=== PATIENT | female | born 1995 | race Caucasian/White ===

== ENCOUNTER 2017-10-09 06:59 | Emergency (ER) | payer OTHER ==
[2017-10-09 07:11] VITALS: BP 132/71; PULSE 82; RESP 18; TEMP 97.2
--- NOTE | 2017-10-09 07:21 | ED ---
General Adult HPI - General Chief complaint: Recheck/Abnormal Lab/Rx Stated complaint: Needle stick-[facility] Time Seen by Provider: 10/09/17 07:17 Source: patient, RN notes reviewed Mode of arrival: ambulatory Limitations: no limitations - History of Present Illness Initial comments: Patient 22-year-old female presenting to the emergency room today with a chief complaint of a needlestick that occurred at work approximately an hour and a half ago. Patient states that she was given the patient heparin. States she went to retract the needle accidentally poked herself on the left hand. She states it did bleed she cleaned and irrigated the area. Patient states her hepatitis B is up-to-date. Patient denies any other complaints or symptoms. Patient denies any recent fever, chills, shortness of breath, chest pain, abdominal pain, nausea or vomiting, or any other complaints. - Related Data Allergies Allergy/AdvReac Type Severity Reaction Status Date / Time codeine Allergy Unknown Verified 10/09/17 07:11 Penicillins Allergy Unknown Verified 10/09/17 07:11 Review of Systems ROS Statement: Those systems with pertinent positive or pertinent negative responses have been documented in the HPI. ROS Other: All systems not noted in ROS Statement are negative. Past Medical History Past Medical History: No Reported History History of Any Multi-Drug Resistant Organisms: None Reported Past Surgical History: No Surgical Hx Reported Past Psychological History: No Psychological Hx Reported Smoking Status: Never smoker Past Alcohol Use History: None Reported Past Drug Use History: None Reported General Exam - General Exam Comments Initial Comments: General: The patient is awake and alert, in no distress, and does not appear acutely ill. Neck: The neck is supple, there is no tenderness or JVD. Cardiovascular: There is a regular rate and rhythm. No murmur, rub or gallop is appreciated. Respiratory: Lungs are clear to auscultation, respirations are non-labored, breath sounds are equal. No wheezes, stridor, rales, or rhonchi. Musculoskeletal: Full range of motion. Sensation intact. Strength 5/5 Neurological: A&O x 3. CN II-XII intact, There are no obvious motor or sensory deficits. Coordination appears grossly intact. Speech is normal. Skin: Skin is warm and dry and no rashes or lesions are noted. Psychiatric: Normal mood and affect. Limitations: no limitations Course Vital Signs 10/09/17 07:08 Temperature 97.2 F L Pulse Rate 82 Respiratory 18 Rate Blood Pressure 132/71 O2 Sat by Pulse 100 Oximetry Medical Decision Making - Medical Decision Making Rapid HIV testing was performed on source blood which was negative. Results were discussed with the patient. Patient at this time will be discharged home to follow-up with employee health. Her blood has been drawn here in the emergency room and is currently pending. Disposition Clinical Impression: Needle stick injury Disposition: HOME SELF-CARE Condition: Good Instructions: Needle Stick Injuries (ED) Additional Instructions: Please follow-up with employee health as discussed. Please return to emergency room if the symptoms increase or worsen or for any other concerns. Referrals: Luke Echevarria DO [Primary Care Provider] - 1-2 days Time of Disposition: 08:35
[2017-10-09 16:49] LABS: Hepatitis B Surface AB- Quant 48.2 mIU/mL; Hepatitis C IgG Antibody Non-Reactive (Non-Reactive)
[2017-10-09 17:37] LABS: HIV AB P24 Non-Reactive (Non-Reactive); HIV P24 AG Non-Reactive (Non-Reactive)
== END 2017-10-09 08:25 | disposition home or self-care (01) ==
LOC: EC 06:59
DX: S69.92XA Unspecified injury of left wrist, hand and finger(s), initial encounter (principal); Z88.0 Allergy status to penicillin; Z88.5 Allergy status to narcotic agent; W46.0XXA Contact with hypodermic needle, initial encounter; Y99.0 Civilian activity done for income or pay
CPT/HCPCS: 36415; 86706; 86803; 87390; 99283

== ENCOUNTER → 2020-01-19 | Outpatient (CLI) | payer OTHER ==
--- NOTE | 2020-01-19 14:22 | XR ---
EXAMINATION TYPE: XR knee limited RT DATE OF EXAM: 01/19/2020 CLINICAL HISTORY: pain TECHNIQUE: Two views of the right knee are obtained. COMPARISON: None. FINDINGS: There is no acute fracture/dislocation. The tri-compartment joint spaces appear within no rmal limits. The overlying soft tissue appears unremarkable. IMPRESSION: There is no acute fracture or dislocation.ICD 10 NO FRACTURE, INITIAL EVALUATION
== END | disposition home or self-care (01) ==
LOC: RADXRMAIN 12:43
PROVIDERS: ATTEND Family Medicine
DX: R52 Pain, unspecified (principal)

== ENCOUNTER → 2021-08-23 | Outpatient (CLI) | payer BC, OTHER ==
--- NOTE | 2021-08-23 21:42 | CT ---
EXAMINATION TYPE: CT angio chest DATE OF EXAM: 08/23/2021 COMPARISON: NONE HISTORY: chest pain and SOB post covid rule out pulmonary embolism. CT DLP: 155.4 mGycm. Automated Exposure Control for Dose Reduction was Utilized. CONTRAST: CTA scan of the thorax is performed with IV Contrast, patient injected with 44cc mL of Isovue 370, pu lmonary embolism protocol. MIP Images are created on CT scanner and reviewed. FINDINGS: LUNGS: Mild biapical pleural/parenchymal scarring. There is no pleural effusion or pneumothorax see n. The tracheobronchial tree is patent. MEDIASTINUM: There is poor bolus with most dense contrast in the SVC. No central pulmonary embolism. Cannot entirely exclude segmental and subsegmental pulmonary emboli on this exam. Some opacification of the aorta without aneurysm or dissection. There are no greater than 1 cm hilar or mediastinal lym ph nodes. No cardiomegaly or pericardial effusion is seen. OTHER: No additional significant abnormality is seen. IMPRESSION: Suboptimal study without central pulmonary embolism. Cannot entirely exclude peripheral s egmental and subsegmental PE. No significant acute or chronic pulmonary parenchymal process.
== END | disposition home or self-care (01) ==
LOC: RADCTMAIN 16:10
PROVIDERS: ATTEND Family Medicine
DX: I26.99 Other pulmonary embolism without acute cor pulmonale (principal)
CPT/HCPCS: 71275; Q9967

== ENCOUNTER 2021-10-29 01:45 | Emergency (ER) | payer BC, OTHER ==
[2021-10-29 01:50] VITALS: TEMP 98
[2021-10-29 03:11] LABS: Basophils % (A) 1 %; Eosinophils # (A) 0.1 k/uL (0-0.7); Eosinophils % (A) 1 %; HCT 42.8 % (34.0-46.0); HGB 14.7 gm/dL (11.4-16.0); Lymphocytes # (A) 1.8 k/uL (1.0-4.8); Lymphocytes % (A) 22 %; MCH 31.7 pg (25.0-35.0); MCHC 34.4 g/dL (31.0-37.0); MCV 92.2 fL (80.0-100.0); Monocytes # (A) 0.5 k/uL (0-1.0); Monocytes % (A) 5 %; Neutrophils # (A) 5.8 k/uL (1.3-7.7); Neutrophils % (A) 69 %; Platelet Count 350 k/uL (150-450); RBC 4.64 m/uL (3.80-5.40); RDW 13.1 % (11.5-15.5); WBC 8.4 k/uL (3.8-10.6)
[2021-10-29 03:27] LABS: ALT 26 U/L (4-34); AST 23 U/L (14-36); African American GFR (CKD) >90 (>60 ml/min/1.73 sqM); Albumin 4.5 g/dL (3.5-5.0); Alkaline Phosphatase 105 U/L (38-126); Amylase 66 U/L (30-110); Anion Gap 7 mmol/L; Appearance,Urine Clear (Clear); Bilirubin,Urine Negative (Negative); Blood Urea Nitrogen 15 mg/dL (7-17); Blood,Urine Negative (Negative); Calcium 9.4 mg/dL (8.4-10.2); Carbon Dioxide 26 mmol/L (22-30); Chloride 107 mmol/L (98-107); Color,Urine Light Yellow; Glucose 109 mg/dL (74-99); Glucose,Urine (UA) Negative (Negative); Ketones,Urine Negative (Negative); Leukocyte Esterase,Urine Negative (Negative); Lipase 67 U/L (23-300); Nitrite,Urine Negative (Negative); Non-African American GFR(CKD) >90 (>60 ml/min/1.73 sqM); Potassium 4.1 mmol/L (3.5-5.1); Protein,Urine Negative (Negative); Sodium 140 mmol/L (137-145); Total Bilirubin 0.5 mg/dL (0.2-1.3); Total Protein 7.6 g/dL (6.3-8.2); Urobilinogen,Urine <2.0 mg/dL (<2.0)
--- NOTE | 2021-10-29 03:42 | ED ---
Abdominal Pain HPI - General Chief Complaint: Abdominal Pain Stated Complaint: lower abdominal/back pain Time Seen by Provider: 10/29/21 02:08 Source: patient Mode of arrival: ambulatory Limitations: no limitations - History of Present Illness MD Complaint: abdominal pain Onset/Timin -: days(s) Location: LLQ, RLQ, suprapubic Radiation: back Migration to: no migration Severity: moderate Quality: aching Consistency: constant Improves With: nothing Worsens With: nothing - Related Data LMP (females 10-50): this week Allergies Allergy/AdvReac Type Severity Reaction Status Date / Time codeine Allergy Unknown Verified 10/09/17 07:11 NSAIDS (Non-Steroidal Allergy Rash/Hives Verified 10/29/21 01:50 Anti-Inflamma Penicillins Allergy Unknown Verified 10/09/17 07:11 Review of Systems ROS Statement: Those systems with pertinent positive or pertinent negative responses have been documented in the HPI. ROS Other: All systems not noted in ROS Statement are negative. Constitutional: Denies: fever, chills Respiratory: Denies: cough, dyspnea Cardiovascular: Denies: chest pain, palpitations Gastrointestinal: Reports: as per HPI, abdominal pain. Denies: nausea, vomiting Genitourinary: Denies: dysuria, frequency, hematuria Musculoskeletal: Denies: back pain Skin: Denies: rash Neurological: Denies: headache Past Medical History Past Medical History: No Reported History History of Any Multi-Drug Resistant Organisms: None Reported Past Surgical History: No Surgical Hx Reported Past Psychological History: No Psychological Hx Reported Smoking Status: Never smoker Past Alcohol Use History: Rare Past Drug Use History: None Reported General Exam Limitations: no limitations General appearance: alert, in no apparent distress Head exam: Present: atraumatic, normocephalic Eye exam: Present: normal appearance. Absent: scleral icterus, conjunctival injection Respiratory exam: Present: normal lung sounds bilaterally. Absent: respiratory distress, wheezes, rales, rhonchi, stridor Cardiovascular Exam: Present: regular rate, normal rhythm, normal heart sounds. Absent: systolic murmur, diastolic murmur, rubs, gallop GI/Abdominal exam: Present: soft. Absent: distended, tenderness, guarding, rebound, rigid, mass Extremities exam: Present: normal inspection, normal capillary refill. Absent: pedal edema, calf tenderness Back exam: Absent: CVA tenderness (R), CVA tenderness (L) Neurological exam: Present: alert Skin exam: Present: warm, dry, intact, normal color. Absent: rash Course Vital Signs 10/29/21 10/29/21 01:48 04:03 Temperature 98 F 98 F Pulse Rate 83 79 Respiratory 18 20 Rate Blood Pressure 143/80 127/77 O2 Sat by Pulse 100 97 Oximetry Medical Decision Making - Lab Data Result diagrams: 10/29/21 02:36 10/29/21 02:36 Lab Results 10/29/21 10/29/21 10/29/21 Range/Units 02:36 02:36 02:36 WBC 8.4 (3.8-10.6) k/uL RBC 4.64 (3.80-5.40) m/uL Hgb 14.7 (11.4-16.0) gm/dL Hct 42.8 (34.0-46.0) % MCV 92.2 (80.0-100.0) fL MCH 31.7 (25.0-35.0) pg MCHC 34.4 (31.0-37.0) g/dL RDW 13.1 (11.5-15.5) % Plt Count 350 (150-450) k/uL MPV 8.0 Neutrophils % 69 % Lymphocytes % 22 % Monocytes % 5 % Eosinophils % 1 % Basophils % 1 % Neutrophils # 5.8 (1.3-7.7) k/uL Lymphocytes # 1.8 (1.0-4.8) k/uL Monocytes # 0.5 (0-1.0) k/uL Eosinophils # 0.1 (0-0.7) k/uL Basophils # 0.0 (0-0.2) k/uL Sodium (137-145) mmol/L Potassium (3.5-5.1) mmol/L Chloride (98-107) mmol/L Carbon Dioxide (22-30) mmol/L Anion Gap mmol/L BUN (7-17) mg/dL Creatinine (0.52-1.04) mg/dL Est GFR (CKD-EPI)AfAm (>60 ml/min/1.73 sqM) Est GFR (CKD-EPI)NonAf (>60 ml/min/1.73 sqM) Glucose (74-99) mg/dL Calcium (8.4-10.2) mg/dL Total Bilirubin (0.2-1.3) mg/dL AST (14-36) U/L ALT (4-34) U/L Alkaline Phosphatase (38-126) U/L Total Protein (6.3-8.2) g/dL Albumin (3.5-5.0) g/dL Amylase (30-110) U/L Lipase (23-300) U/L Urine Color Light Yellow Urine Appearance Clear (Clear) Urine pH 6.0 (5.0-8.0) Ur Specific [place] 1.010 (1.001-1.035) Urine Protein Negative (Negative) Urine Glucose (UA) Negative (Negative) Urine Ketones Negative (Negative) Urine Blood Negative (Negative) Urine Nitrite Negative (Negative) Urine Bilirubin Negative (Negative) Urine Urobilinogen <2.0 (<2.0) mg/dL Ur Leukocyte Esterase Negative (Negative) Urine HCG, Qual Not Detected (Not Detectd) 10/29/21 Range/Units 02:36 WBC (3.8-10.6) k/uL RBC (3.80-5.40) m/uL Hgb (11.4-16.0) gm/dL Hct (34.0-46.0) % MCV (80.0-100.0) fL MCH (25.0-35.0) pg MCHC (31.0-37.0) g/dL RDW (11.5-15.5) % Plt Count (150-450) k/uL MPV Neutrophils % % Lymphocytes % % Monocytes % % Eosinophils % % Basophils % % Neutrophils # (1.3-7.7) k/uL Lymphocytes # (1.0-4.8) k/uL Monocytes # (0-1.0) k/uL Eosinophils # (0-0.7) k/uL Basophils # (0-0.2) k/uL Sodium 140 (137-145) mmol/L Potassium 4.1 (3.5-5.1) mmol/L Chloride 107 (98-107) mmol/L Carbon Dioxide 26 (22-30) mmol/L Anion Gap 7 mmol/L BUN 15 (7-17) mg/dL Creatinine 0.71 (0.52-1.04) mg/dL Est GFR (CKD-EPI)AfAm >90 (>60 ml/min/1.73 sqM) Est GFR (CKD-EPI)NonAf >90 (>60 ml/min/1.73 sqM) Glucose 109 H (74-99) mg/dL Calcium 9.4 (8.4-10.2) mg/dL Total Bilirubin 0.5 (0.2-1.3) mg/dL AST 23 (14-36) U/L ALT 26 (4-34) U/L Alkaline Phosphatase 105 (38-126) U/L Total Protein 7.6 (6.3-8.2) g/dL Albumin 4.5 (3.5-5.0) g/dL Amylase 66 (30-110) U/L Lipase 67 (23-300) U/L Urine Color Urine Appearance (Clear) Urine pH (5.0-8.0) Ur Specific [place] (1.001-1.035) Urine Protein (Negative) Urine Glucose (UA) (Negative) Urine Ketones (Negative) Urine Blood (Negative) Urine Nitrite (Negative) Urine Bilirubin (Negative) Urine Urobilinogen (<2.0) mg/dL Ur Leukocyte Esterase (Negative) Urine HCG, Qual (Not Detectd) Disposition Clinical Impression: Abdominal pain Disposition: HOME SELF-CARE Condition: Good Instructions (If sedation given, give patient instructions): Abdominal Pain (ED) Is patient prescribed a controlled substance at d/c from ED?: No Referrals: Luke Echevarria DO [Primary Care Provider] - 1-2 days
[2021-10-29 04:04] VITALS: BP 127/77; PULSE 79; RESP 20
== END 2021-10-29 04:04 | disposition home or self-care (01) ==
LOC: EC 01:45
DX: R10.32 Left lower quadrant pain (principal); R10.31 Right lower quadrant pain; Z88.5 Allergy status to narcotic agent; Z88.0 Allergy status to penicillin; Z88.6 Allergy status to analgesic agent
CPT/HCPCS: 36415; 80053; 81003; 81025; 82150; 83690; 85025; 99284

== ENCOUNTER → 2021-11-04 | Outpatient (CLI) | payer BC ==
--- NOTE | 2021-11-04 12:10 | XR ---
AP pelvis HISTORY: M54.50 Low back pain Z87.81 Personal hx of pelvic fx Single frontal view of the pelvis Probable phleboliths are present within the pelvis. Bone mineralization, joint spaces and alignment a re maintained. Mild asymmetry in the right ilium as compared to the left may be due to remote trauma. IMPRESSION: No acute abnormality is evident.
--- NOTE | 2021-11-04 13:07 | XR ---
Lumbar spine HISTORY: Low back pain 3 views of the lumbar spine Lumbar vertebral bodies show preserved height and bone mineralization. There may be a slight spinal c urvature, could be positional. Disc spaces are maintained. No paraspinal mass. There is overlying art ifact. IMPRESSION: No acute fracture or subluxation. There may be a slight spinal curvature.
== END | disposition home or self-care (01) ==
LOC: RADXRMAIN 09:48
PROVIDERS: ATTEND Family Medicine
DX: M54.50 Low back pain, unspecified (principal); Z87.81 Personal history of (healed) traumatic fracture
CPT/HCPCS: 72100; 72170

== ENCOUNTER → 2021-11-21 | Outpatient (CLI) | payer BC ==
--- NOTE | 2021-11-22 07:43 | US ---
EXAMINATION TYPE: US transvaginal DATE OF EXAM: 11/21/2021 COMPARISON: NONE CLINICAL HISTORY: 26-year-old female R10.2 FEMALE PELVIC PAIN. Pelvic pain, irregular heavier bleedin g with periods. Hx pelvic fracture when patient was younger. G0. TECHNIQUE: Transvaginal (TV). Date of LMP: 11/19/2021 FINDINGS: EXAM MEASUREMENTS: Uterus: 7.3 x 3.9 x 3.5 cm Endometrial Stripe: 0.47 cm Right Ovary: 3.2 x 2.0 x 2.4 cm Left Ovary: 3.4 x 2.6 x 2.4 cm 1. Uterus: Retroverted and otherwise appears heterogeneous. Limited due to shadowing. Anechoic, flui d appearing area seen in lower uterus: 1.1 x 0.4 x 0.3 cm. 2. Endometrium: 0.47 cm. Anechoic, fluid-appearing area seen within: 0.9 x 0.6 x 0.1 cm. 3. Right Ovary: Follicles seen. 4. Left Ovary: Follicles seen. Largest anechoic area measures 1.0 cm. 5. Bilateral Adnexa: Trace fluid within the right adnexa. 6. Posterior cul-de-sac: Fluid seen. IMPRESSION: 1. Trace fluid within the intrauterine cavity. The endometrial stripe measures normal at 5 mm. 2. Retroverted uterus. 3. Normal follicular changes in the ovaries. 4. Trace right adnexal and cul-de-sac free fluid likely physiologic.
== END | disposition home or self-care (01) ==
LOC: RADUSWWP 15:25
PROVIDERS: ATTEND Family Medicine
DX: R10.2 Pelvic and perineal pain (principal)
CPT/HCPCS: 76830

== ENCOUNTER → 2022-07-04 | Outpatient (CLI) | payer BC ==
[2022-07-04 22:41] LABS: HCT 33.9 % (37.2-46.3); HGB 10.6 g/dL (12.0-15.0); MCH 29.7 pg (27.0-32.0); MCHC 31.3 g/dL (32.0-37.0); Mean Platelet Volume 10.8 fL (9.5-12.2); NRBC Per 100 WBC 0 /100 WBCS (0.0-0.0); Platelet Count 292 X 10*3/uL (140-440); RBC 3.57 X 10*6/uL (4.10-5.20); RDW 13.5 % (11.5-14.5); WBC 10.22 X 10*3/uL (4.50-10.00)
== END | disposition home or self-care (01) ==
LOC: LABWHC1 14:37
PROVIDERS: ATTEND Obstetrics & Gynecology
DX: Z34.02 Encounter for supervision of normal first pregnancy, second trimester (principal); Z3A.00 Weeks of gestation of pregnancy not specified
CPT/HCPCS: 36415; 82950; 85027

== ENCOUNTER 2022-08-03 17:23 | Emergency (ER) | payer BC ==
[2022-08-03 17:30] VITALS: BP 134/82; PULSE 96; RESP 12; TEMP 98.3
--- NOTE | 2022-08-03 18:23 | ED ---
General Adult HPI - General Chief complaint: Upper Respiratory Infection Stated complaint: 29 weeks , R side/back pain, Cough Time Seen by Provider: 08/03/22 17:59 Source: patient, RN notes reviewed Mode of arrival: ambulatory Limitations: no limitations - History of Present Illness Initial comments: This is a pleasant 26-year-old female who is 29 weeks . Patient states that she has had a cough related to postnasal drainage for about the last 3 weeks. Patient states that she coughed this morning and felt a sharp pain to her right ribs. Patient states that if she is sitting still she is having no pain. However she moves, the area is pressed, or 60 breath and she is getting pain to the right lateral ribs. Patient not short of breath. No fever. Patient denying any vaginal bleeding or vaginal discharge. No abdominal or pelvic pain. Patient is not on any medications. No significant past medical history. A0. No nausea or vomiting. No changes in all movements or urination. - Related Data Allergies Allergy/AdvReac Type Severity Reaction Status Date / Time cephalexin [From Keflex] Allergy Rash/Hives Verified 08/03/22 17:31 clindamycin Allergy Rash/Hives Verified 08/03/22 17:31 codeine Allergy Unknown Verified 08/03/22 17:31 NSAIDS (Non-Steroidal Allergy Rash/Hives Verified 08/03/22 17:31 Anti-Inflamma Penicillins Allergy Rash/Hives Verified 08/03/22 17:31 Review of Systems ROS Statement: Those systems with pertinent positive or pertinent negative responses have been documented in the HPI. ROS Other: All systems not noted in ROS Statement are negative. Past Medical History Past Medical History: No Reported History History of Any Multi-Drug Resistant Organisms: None Reported Past Surgical History: No Surgical Hx Reported Past Psychological History: No Psychological Hx Reported Smoking Status: Never smoker Past Alcohol Use History: Rare Past Drug Use History: None Reported General Exam - General Exam Comments Initial Comments: Vital signs stable, patient afebrile. Patient in no distress. Does not appear to be ill or toxic. Limitations: no limitations General appearance: alert, in no apparent distress Head exam: Present: atraumatic, normocephalic, normal inspection Eye exam: Present: normal appearance, PERRL, EOMI. Absent: scleral icterus, conjunctival injection, periorbital swelling ENT exam: Present: normal exam, normal oropharynx, mucous membranes moist, normal external ear exam, other. Absent: mucous membranes dry Neck exam: Present: normal inspection, full ROM. Absent: tenderness, meningismus, lymphadenopathy Respiratory exam: Present: normal lung sounds bilaterally, chest wall tenderness (Patient has mucoid nasal discharge with clear postnasal drainage. No evidence of erythema. No evidence of purulent discharge. Patient has tenderness to right lateral rib area. No break in skin integrity. No rashes or lesions. No crepitus noted), other (No adventitious lung sounds. No respiratory distress). Absent: respiratory distress, wheezes, rales, rhonchi, stridor, accessory muscle use, decreased breath sounds, prolonged expiratory Cardiovascular Exam: Present: regular rate, normal rhythm, normal heart sounds. Absent: systolic murmur, diastolic murmur, rubs, gallop, clicks GI/Abdominal exam: Present: soft, normal bowel sounds. Absent: distended, t enderness, guarding, rebound, rigid Extremities exam: Present: normal inspection, full ROM, normal capillary refill. Absent: tenderness, pedal edema, joint swelling, calf tenderness Back exam: Present: normal inspection Neurological exam: Present: alert, oriented X3, CN II-XII intact Psychiatric exam: Present: normal affect, normal mood Skin exam: Present: warm, dry, intact, normal color. Absent: rash Course Vital Signs 08/03/22 17:25 Temperature 98.3 F Pulse Rate 96 Respiratory 12 Rate Blood Pressure 134/82 O2 Sat by Pulse 97 Oximetry - Reevaluation(s) Reevaluation #1: 08/03/22 19:45 Patient reevaluated prior to discharge and is in no distress. Vital signs stable, patient afebrile. Patient in no respiratory distress. Medical Decision Making - Medical Decision Making Did have a long discussion with the patient regarding possible etiologies, to include cough related to rib fracture, intercostal muscle strain, ligamentous/soft tissue strain. Discussed other etiologies such as pulmonary embolism. However, patient in no distress. Pain came on suddenly with a cough. Patient elsewhere about the possibility of preeclampsia. However patient's blood pressure is 134/82. Was pt. sent in by a medical professional or institution? @ -[Sent by the patient's petroleum plant operator] Did you speak to anyone other than the patient for history? @ -Patient's Did you review nursing and triage notes? @ -Agree, consistent with presentation Were old charts reviewed? @ -No Differential Diagnosis? @ -Rib fracture, intercostal muscle strain, pneumonia, pneumothorax, pulmonary embolism possible but less likely. EKG interpreted by me (3pts min.)? @ -[none] X-rays interpreted by me (1pt min.)? @ -Independent interpretation of the x-ray by me shows no evidence of acute pathology. No pneumothorax, no infiltrate, no evidence of rib fracture. Radiology interpretation reviewed CT interpreted by me (1pt min.)? @ -[none] U/S interpreted by me (1pt. min.)? @ -[none] What testing was considered but not performed? (CT, X-rays, U/S, labs)? Why? @Considered laboratory investigations however, based on the patient's presentati on and detailed discussion with the petroleum plant operator these were deferred to her shared decision-making. Discussed other etiologies to include things such as pulmonary embolism. However this was sudden onset due to cough. Likely related to postnasal drainage. Patient was in no distress. Patient deferring any further testing other than the x-ray which was requested by the patient's petroleum plant operator, Dr. Varner. Again, I discussed this case with the petroleum plant operator in detail. What meds were considered but not given? Why? @ -Acetaminophen, patient deferred Did you discuss the management of the patient with other professionals? @ -[employer] Att[employer], Dr. Varner. Case discussed in detail. She request a chest/rib x-ray. ED attending physician, Dr. Isaac Did you reconcile home meds? @ -[none] Was smoking cessation discussed for >3mins.? @ -[none] Was critical care preformed (if so, how long)? @ -[none] Were there social determinants of health that impacted care today? How? (Homelessness, low income, unemployed, alcoholism, drug addiction, transportation, low edu. Level, literacy, decrease access to med. care, alf, rehab)? @ -none Was there de-escalation of care discussed even if they declined? (Discuss DNR or withdrawal of care, Hospice)? @ -Not applicable What co-morbidities impacted this encounter? (DM, HTN, Smoking, COPD, CAD, Cancer, CVA, Hep., AIDS, mental health diagnosis, sleep apnea, morbid obesity)? @ -None Was patient admitted / discharged? @ -Patient remains stable and in no acute distress strep entire stay here in the emergency department. Case was discussed with the petroleum plant operator. All findings discussed with the patient. Discussed further testing with the patient. Further testing was deferred to her shared decision-making.(Consistent with a intercostal muscle strain or soft tissue injury. Possibly a cough related rib fracture which does not show up on x-ray. Discussed other etiologies to include pulmonary embolism. However patient's clinical presentation does not fit this. Patient deferred any further testing. Obst etrician advised a chest x-ray to rule out rib fracture. Undiagnosed new problem with uncertain prognosis? @ -[none] Drug Therapy requiring intensive monitoring for toxicity (Heparin, Nitro, Insulin, Cardizem)? @ -[none] Were any procedures done? @ -[none] Diagnosis/symptom? @ -Right rib pain/intercostal muscle strain Acute, or Chronic, or Acute on Chronic? @ -Acute Uncomplicated (without systemic symptoms) or Complicated (systemic symptoms)? @ -Uncomplicated aside from the patient being 29 weeks Side effects of treatment? @ -[none] Exacerbation, Progression, or Severe Exacerbation] @ -[no] Poses a threat to life or bodily function? @ -Unlikely at this time. heart tones are normal. His case was discussed in detail with the petroleum plant operator. All findings discussed with the patient. We did discuss other etiologies to include more severe etiologies such as pulmonary embolism. I think this is unlikely given the patient's presentation. Patient presentation most consistent with postnasal drainage with secondary cough. Viral testing was also negative. All findings discussed with the patient. Patient deferred any further testing. We'll follow-up with the petroleum plant operator. Patient was told to return to the ER for any signs or symptoms worsen. Told to return immediately if any other problems arise. All questions answered. Treatment plan discussed. Patient in agreement Every effort has been made to ensure accuracy of this dictation. However, due to the limitations of electronic medical records and dictation devices, errors in charting still occur. - Lab Data Lab Results 08/03/22 Range/Units 18:15 Influenza Type A (PCR) Not Detected (Not Detectd) Influenza Type B (PCR) Not Detected (Not Detectd) RSV (PCR) Not Detected (Not Detectd) SARS-CoV-2 (PCR) Not Detected (Not Detectd) Disposition Clinical Impression: Rib pain on right side, Post-nasal drainage Disposition: HOME SELF-CARE Condition: Good Instructions (If sedation given, give patient instructions): Chest Wall Pain (ED) Additional Instructions: Use [id number] acetaminophen as needed for pain control. 500 mg every 4-6 hours. Follow-up with your petroleum plant operator. Follow-up with your regular physician as directed. Return to the ER immediately if any symptoms worsen, new symptoms arise, or any other problems develop. Is patient prescribed a controlled substance at d/c from ED?: No Referrals: Luke Echevarria DO [Doctor of Osteopathic Medicine] - 1-2 days Ami Varner DO [Doctor of Osteopathic Medicine] - 1-2 days Time of Disposition: 19:37
--- NOTE | 2022-08-03 18:56 | XR ---
EXAMINATION TYPE: XR ribs RT w pa chest xray DATE OF EXAM: 08/03/2022 CLINICAL HISTORY: Chest and right-sided rib pain after coughing injury. TECHNIQUE: Single frontal view of the chest is obtained. A frontal and oblique images right-sided rib s. COMPARISON: CTA chest August 23, 2021 FINDINGS: There is no focal air space opacity, pleural effusion, or pneumothorax seen. The cardiac silhouette size is within normal limits. The osseous structures are intact. Dedicated images of the right-sided ribs show no acute displaced fracture. Overlying soft tissue is u nremarkable. IMPRESSION: 1. No acute cardiopulmonary process. 2. No acute displaced right-sided rib fracture.
== END 2022-08-03 19:44 | disposition home or self-care (01) ==
LOC: EC 17:23
DX: O99.513 Diseases of the respiratory system complicating pregnancy, third trimester (principal); R07.81 Pleurodynia; R09.82 Postnasal drip; Z20.822 Contact with and (suspected) exposure to COVID-19; Z88.0 Allergy status to penicillin; Z88.6 Allergy status to analgesic agent; Z88.5 Allergy status to narcotic agent; Z3A.29 29 weeks gestation of pregnancy
CPT/HCPCS: 87636; 99283

== ENCOUNTER 2022-10-23 17:00 | Inpatient (IN) | payer BC ==
[2022-10-24] MEDS ORDERED: LIDOCAINE 0.5% (PF) 5 MG/ML (50 ML SDV) SQ PRN (07:33)
[2022-10-24] MEDS ORDERED: TERBUTALINE 1 MG/ML VIAL SQ PRN (07:33)
[2022-10-24] MEDS ORDERED: miSOPROStoL 200 MCG TAB PO PRN (07:33)
[2022-10-24] MEDS ORDERED: TRANEXAMIC ACID IN NACL,ISO-OS 1,000 MG in EMPTY BAG 1 BAG IV PRN (07:33)
[2022-10-24] MEDS ORDERED: OXYTOCIN 10 UNIT/ML 1 ML VIAL IM PRN (07:33)
[2022-10-24] MEDS ORDERED: CARBOPROST TROMETHAMINE 250 MCG/ML 1 ML AMP IM PRN (07:33)
[2022-10-24] MEDS ORDERED: METHYLERGONOVINE 0.2 MG/ML 1 ML AMP IM PRN (07:33)
[2022-10-24] MEDS: LACTATED RINGERS 1,000 ML IV SCH ×3 (07:37→13:52)
[2022-10-24 07:42] LABS: Basophils % (A) 0 %; Eosinophils # (A) 0.1 k/uL (0-0.7); Eosinophils % (A) 1 %; HCT 36.6 % (34.0-46.0); HGB 12.3 gm/dL (11.4-16.0); Lymphocytes # (A) 1.6 k/uL (1.0-4.8); Lymphocytes % (A) 14 %; MCH 29.3 pg (25.0-35.0); MCHC 33.5 g/dL (31.0-37.0); MCV 87.3 fL (80.0-100.0); Mean Platelet Volume 9.6; Monocytes # (A) 0.5 k/uL (0-1.0); Monocytes % (A) 5 %; Neutrophils # (A) 8.8 k/uL (1.3-7.7); Neutrophils % (A) 78 %; Platelet Count 253 k/uL (150-450); RBC 4.19 m/uL (3.80-5.40); RDW 13.5 % (11.5-15.5); WBC 11.3 k/uL (3.8-10.6)
[2022-10-24] MEDS ORDERED: OXYTOCIN 30 UNITS/500 ML NS 30 UNIT in SALINE 1 500ML.BAG IV SCH (07:45)
[2022-10-24] MEDS ORDERED: ROPIVACAINE 5 MG/ML 20 ML AMPULE ONE (13:10)
[2022-10-24] MEDS ORDERED: fentaNYL (PF) 50 MCG/ML 5 ML AMP ONE (13:10)
[2022-10-24] MEDS ORDERED: SODIUM CHLORIDE 0.9% 100 ML BAG ONE (13:10)
--- NOTE | 2022-10-24 19:49 | P.HPOB ---
History of Present Illness H&P Date: 10/24/22 Chief Complaint: Induction of labor 27 year old at 41 weeks 2 days presents for induction of labor. Her cervix is 2/80/-2. She is arturo irregularly and heart tones are category 1. Review of Systems All systems: negative Constitutional: Denies chills, Denies fever Eyes: denies blurred vision, denies pain Ears, nose, mouth and throat: Denies headache, Denies sore throat Cardiovascular: Denies chest pain, Denies shortness of breath Respiratory: Denies cough Gastrointestinal: Denies abdominal pain, Denies diarrhea, Denies nausea, Denies vomiting Genitourinary: Denies dysuria, Denies hematuria Musculoskeletal: Denies myalgias Integumentary: Denies pruritus, Denies rash Neurological: Denies numbness, Denies weakness Psychiatric: Denies anxiety, Denies depression Endocrine: Denies fatigue, Denies weight change Past Medical History Past Medical History: No Reported History History of Any Multi-Drug Resistant Organisms: None Reported Past Surgical History: No Surgical Hx Reported Past Anesthesia/Blood Transfusion Reactions: No Reported Reaction Past Psychological History: No Psychological Hx Reported Smoking Status: Never smoker Past Alcohol Use History: None Reported Past Drug Use History: None Reported - Past Family History Father Family Medical History: No Reported History Mother Additional Family Medical History / Comment(s): heart arrhythmia Medications and Allergies Allergies Allergy/AdvReac Type Severity Reaction Status Date / Time adhesive tape Allergy Rash/Hives Verified 10/24/22 07:32 cephalexin [From Keflex] Allergy Rash/Hives Verified 10/24/22 07:32 clindamycin Allergy Rash/Hives Verified 10/24/22 07:32 codeine Allergy Unknown Verified 10/24/22 07:32 NSAIDS (Non-Steroidal Allergy Rash/Hives Verified 10/24/22 07:32 Anti-Inflamma Penicillins Allergy Rash/Hives Verified 10/24/22 07:32 Exam Osteopathic Statement: *. No significant issues noted on an osteopathic structural exam other than those noted in the History and Physical/Consult. Vital Signs Temp Pulse Resp BP Pulse Ox 10/24/22 07:47 97.6 F 71 16 132/82 98 Intake and Output 10/24/22 10/24/22 10/24/22 06:59 14:59 22:59 Intake Total 1500 Balance 1500 Intake: IV 1500 Other: # Voids 3 Weight 83.915 kg Heart: Regular rate and rhythm Lungs: Clear to auscultation bilaterally Abdomen: Soft, nontender Extremities: Negative Homans sign Results Result Diagrams: 10/24/22 07:25 Abnormal Lab Results - Last 24 Hours (Table) 10/24/22 Range/Units 07:25 WBC 11.3 H (3.8-10.6) k/uL Neutrophils # 8.8 H (1.3-7.7) k/uL Assessment and Plan (1) Encounter for induction of labor Current Visit: Yes Status: Acute Code(s): Z34.90 - ENCNTR FOR SUPRVSN OF NORMAL , UNSP, UNSP TRIMESTER SNOMED Code(s): 698365030 (2) Post-dates Current Visit: Yes Status: Acute Code(s): O48.0 - POST-TERM SNOMED Code(s): 78808097 Plan: 1. induction of labor with amniotomy and pitocin 2. anticipate normal vaginal delivery
[2022-10-24] MEDS ORDERED: CITRIC ACID-SODIUM CITRATE 15 ML CUP PO ONE (23:22)
[2022-10-24] MEDS ORDERED: LIDOCAINE HCL/PF 20 MG/ML 10 ML AMP ONE (23:57)
[2022-10-24] MEDS ORDERED: ONDANSETRON 4 MG/2 ML VIAL ONE (23:57)
[2022-10-24] MEDS ORDERED: KETOROLAC 30 MG/ML 1 ML VIAL ONE (23:57)
[2022-10-24] MEDS ORDERED: fentaNYL (PF) 50 MCG/ML 2 ML AMP ONE (23:57)
[2022-10-24] MEDS ORDERED: PROPOFOL 10 MG/ML 20 ML VIAL IV ONE (23:57)
[2022-10-25] MEDS ORDERED: ONDANSETRON 4 MG/2 ML VIAL IVP PRN (01:00)
[2022-10-25] MEDS ORDERED: SIMETHICONE 80 MG CHEWABLE PO PRN (01:00)
[2022-10-25] MEDS ORDERED: METOCLOPRAMIDE 5 MG/ML 2 ML VIAL IVP PRN (01:00)
[2022-10-25] MEDS ORDERED: diphenhydrAMINE 50 MG/ML 1 ML VIAL IVP PRN ×2 (01:00)
[2022-10-25] MEDS ORDERED: ZOLPIDEM 5 MG TAB PO PRN (01:00)
[2022-10-25] MEDS ORDERED: LANOLIN CREAM 5 GM TUBE TOPICAL PRN (01:00)
[2022-10-25] MEDS ORDERED: NALOXONE 0.4 MG/ML 1 ML VIAL IV PRN (01:00)
[2022-10-25] MEDS ORDERED: diphenhydrAMINE 25 MG CAP PO PRN (01:00)
[2022-10-25] MEDS ORDERED: diphenhydrAMINE 50 MG CAP PO PRN (01:00)
--- NOTE | 2022-10-25 01:08 | P.OP ---
Date of Procedure: 10/25/22 Preoperative Diagnosis: 1. at 41 weeks 2 days 2. arrest of descent 3. maternal exhaustion Postoperative Diagnosis: 1. at 41 weeks 2 days 2. arrest of descent 3. maternal exhaustion 4. Occiput posterior position Procedure(s) Performed: Primary low transverse Anesthesia: epidural Surgeon: Ami Varnre Plate Grainer #1: Rachael Mccray Estimated Blood Loss (ml): 500 IV fluids (ml): 1,000 Urine output (ml): 200 Pathology: none sent Condition: stable Disposition: floor Indications for Procedure: Patient presented for induction of labor at 41 weeks and 2 days. Her cervix was 2 cm dilated, 80% effaced, -2 station. She was not arturo. heart tones are 150 with moderate variability and reactive. Amniotomy was performed just after 8 and the morning meconium-stained fluid was noted. She progressed slowly throughout the day did get an epidural and was comfortable until about 8 cm. At 8 cm she was struggling with contractions and working through them well. When she was completely dilated she labored down for over an hour and pushed for over an hour with no descent. The baby started to have some intermittent late decelerations and the patient told me she was very tired and could not longer push. Patient center huddle was performed at the bedside was my clinical recommendation to proceed with delivery and after questions were answered the patient agreed with the recommended plan. Operative Findings: Viable male, Apgars 8, 9, weight 7 lbs. 13 oz. Baby was in occiput posterior position. Normal uterus, tubes, ovaries. Description of Procedure: Patient was taken to the operating room where epidural anesthesia was found be adequate. She was prepped and draped in normal sterile fashion in dorsal supine position with a leftward tilt. Pfannenstiel skin incision was made the scalpel and carried through to the underlying layer of fascia with the scalpel. Fascia was incised in midline and carried bilaterally with the Goldsmith scissors. The superior aspect of the fascial incision was grasped with Manderson clamps elevated and the underlying rectus muscles dissected off with the Goldsmith's. Attention was then turned to inferior aspect of same incision which in a similar fashion was grasped tented up and the underlying rectus muscles dissected off with the Goldsmith's. The rectus muscles were the midline and the peritoneum was identified tented up and entered sharply with the scalpel. The incision was extended superiorly and inferiorly with good visualization of the bladder. The bladder blade was inserted and the vesicouterine peritoneum was incised the Metzenbaums then carried bilaterally and bladder flap created digitally. A low transverse incision was then made on the uterus with the scalpel. This was carried bilaterally and digital manner. Infant's head delivered atraumatically, nose and mouth bulb suctioned, cord clamped and cut, infant handed off to waiting nurses. Apgars 8,9, weight 7 lbs. 13 oz. Placenta delivered manually, intact with three-vessel cord. The uterus is exteriorized and cleared of all clots and debris. The uterine incision was closed with 0 Vicryl in a running locked fashion. Second layer of the same sutures used in imbricating fashion to obtain excellent hemostasis. Both ovaries and tubes appeared normal. The uterus was placed back into the abdomen. The muscles were reapproximated using 2-0 Vicryl in interrupted fashion. The fascia was reapproximated using 0 Vicryl in a running fashion. The subcutaneous tissues closed with 3-0 Vicryl running fashion. The skin was closed lizabeth. Patient tolerated the procedure well, sponge and instrument counts were correct times 2 and she was taken to the recovery room in stable condition.
[2022-10-25] MEDS: LACTATED RINGERS 1,000 ML IV SCH ×2 (03:35→20:03)
[2022-10-25] MEDS: ACETAMINOPHEN TAB 500 MG TAB PO SCH ×4 (03:44→23:11)
--- NOTE | 2022-10-25 07:25 | P.PN ---
Progress Note - Text Progress Note Date: 10/25/22 Postoperative day 1 status post section under epidural anesthesia, and epidural morphine given for postoperative analgesia, patient doing well, there is no anesthesia related complications, Patient had no headache, vital signs stable , Assessment and plan= postop day 1 status post , doing well there is no anesthesia related complication.
[2022-10-25] MEDS: SENNOSIDES-DOCUSATE SODIUM 1 EACH TAB PO SCH ×2 (08:08→21:32)
[2022-10-26] MEDS: ACETAMINOPHEN TAB 500 MG TAB PO SCH ×3 (06:55→20:27)
[2022-10-26 07:27] LABS: Basophils % (A) 0 %; Eosinophils # (A) 0.1 k/uL (0-0.7); Eosinophils % (A) 1 %; HCT 27.4 % (34.0-46.0); Lymphocytes # (A) 1.6 k/uL (1.0-4.8); Lymphocytes % (A) 14 %; MCH 29.5 pg (25.0-35.0); MCHC 33.3 g/dL (31.0-37.0); MCV 88.6 fL (80.0-100.0); Mean Platelet Volume 9.8; Monocytes # (A) 0.4 k/uL (0-1.0); Monocytes % (A) 4 %; Neutrophils # (A) 9.3 k/uL (1.3-7.7); Neutrophils % (A) 81 %; Platelet Count 210 k/uL (150-450); RBC 3.09 m/uL (3.80-5.40); RDW 13.9 % (11.5-15.5); WBC 11.6 k/uL (3.8-10.6)
[2022-10-26 07:46] LABS: HGB 9.1 gm/dL (11.4-16.0)
[2022-10-26] MEDS: SENNOSIDES-DOCUSATE SODIUM 1 EACH TAB PO SCH ×2 (08:46→20:27)
--- NOTE | 2022-10-26 08:49 | P.PNOBGPC ---
Subjective - Subjective Principal diagnosis: Status post primary low transverse postoperative day 1 Interval history: Patient seen and examined. Denies nausea, vomiting, chest pain, shortness of breath or calf pain. Patient reports: Reports appetite normal, Reports voiding normally, Reports pain well controlled, Reports ambulating normally : doing well Objective - Vital Signs Latest vital signs: Vital Signs Temp Pulse Resp BP Pulse Ox 10/26/22 08:30 98.1 F 79 16 136/82 98 10/25/22 23:16 98.4 F 91 18 129/78 98 10/25/22 19:56 97.6 F 91 18 133/77 10/25/22 16:00 98.4 F 84 16 124/75 10/25/22 12:00 98.0 F 98 16 129/76 98 Intake and Output 10/25/22 10/26/22 10/26/22 22:59 06:59 14:59 Intake Total 400 Output Total 1000 Balance -1000 400 Intake: Oral 400 Output: Urine 1000 Other: # Voids 1 - Exam Lungs: bilateral: normal Chest: Normal S1, Normal S2 Extremities: Present: normal Abdomen: Present: normal appearance, soft. Absent: distention, tenderness Incision: Present: normal, dry, intact Uterus: Present: normal, firm - Labs Labs: Abnormal Lab Results - Last 24 Hours (Table) 10/26/22 Range/Units 06:52 WBC 11.6 H (3.8-10.6) k/uL RBC 3.09 L (3.80-5.40) m/uL Hgb 9.1 L D (11.4-16.0) gm/dL Hct 27.4 L (34.0-46.0) % Neutrophils # 9.3 H (1.3-7.7) k/uL Assessment and Plan (1) Encounter for induction of labor Current Visit: Yes Status: Resolved Code(s): Z34.90 - ENCNTR FOR SUPRVSN OF NORMAL , UNSP, UNSP TRIMESTER SNOMED Code(s): 817228839 (2) Post-dates Current Visit: Yes Status: Resolved Code(s): O48.0 - POST-TERM SNOMED Code(s): 14654012 (3) Status post primary low transverse section Current Visit: Yes Status: Acute Code(s): Z98.891 - HISTORY OF UTERINE SCAR FROM PREVIOUS SURGERY SNOMED Code(s): 131969809 Plan: 1. Continue postoperative care 2. Increase in relation 3. Regular diet
[2022-10-27] MEDS: ACETAMINOPHEN TAB 500 MG TAB PO SCH ×3 (03:06→09:00)
--- NOTE | 2022-10-27 07:51 | P.DS ---
Providers Date of admission: 10/24/22 06:07 Expected date of discharge: 10/27/22 Attending physician: Ami Varner Primary care physician: Stated None - Discharge Diagnosis(es) (1) Encounter for induction of labor Current Visit: Yes Status: Resolved (2) Post-dates Current Visit: Yes Status: Resolved (3) Status post primary low transverse section Current Visit: Yes Status: Acute Hospital Course: She presented for induction of labor. She underwent a primary low transverse C- section for arrest of descent and maternal exhaustion. Postoperative course was uneventful. She denies nausea, vomiting, chest pain, shortness of breath or calf pain. Her incision is clean, dry, intact. Patient will be discharged home postoperative day #2 in stable condition to follow-up with me in one week. Plan - Discharge Summary New Discharge Prescriptions: New oxyCODONE HCL [OxyIR] 5 mg PO Q4HR PRN #18 tab PRN Reason: Pain Scale 4 - 6 Acetaminophen Tab [Tylenol] 1,000 mg PO Q6H #30 tab Discharge Medication List Acetaminophen Tab [Tylenol] 1,000 mg PO Q6H #30 tab 10/27/22 [Rx] oxyCODONE HCL [OxyIR] 5 mg PO Q4HR PRN #18 tab 10/27/22 [Rx] Follow up Appointment(s)/Referral(s): Ami Varner DO [Doctor of Osteopathic Medicine] - 11/02/22 1:30 pm (PP 12/07/2022 @11:15 Am) Discharge Disposition: HOME SELF-CARE
[2022-10-27] MEDS: SENNOSIDES-DOCUSATE SODIUM 1 EACH TAB PO SCH (09:00)
[2022-10-27 09:17] VITALS: BP 134/89; PULSE 74; RESP 12; TEMP 98.6
== END 2022-10-27 14:55 | disposition home or self-care (01) | DRG 788 ==
LOC: 4FBP 10-24 06:07
PROVIDERS: ADMIT Obstetrics & Gynecology; ATTEND Obstetrics & Gynecology
PROC: 10D00Z1 Extraction of Products of Conception, Low, Open Approach (ICD-10-PCS; principal; 2022-10-25)
PROC: 4A0HXCZ Measurement of Products of Conception, Cardiac Rate, External Approach (ICD-10-PCS; 2022-10-25)
PROC: 10907ZC Drainage of Amniotic Fluid, Therapeutic from Products of Conception, Via Natural or Artificial Opening (ICD-10-PCS; 2022-10-25)
PROC: 3E033VJ Introduction of Other Hormone into Peripheral Vein, Percutaneous Approach (ICD-10-PCS; 2022-10-25)
DX: O32.8XX0 Maternal care for other malpresentation of fetus, not applicable or unspecified (principal); O48.0 Post-term pregnancy; O62.0 Primary inadequate contractions; O75.81 Maternal exhaustion complicating labor and delivery; O76 Abnormality in fetal heart rate and rhythm complicating labor and delivery; O32.4XX0 Maternal care for high head at term, not applicable or unspecified; Z37.0 Single live birth; O77.0 Labor and delivery complicated by meconium in amniotic fluid; Z3A.41 41 weeks gestation of pregnancy; Z88.1 Allergy status to other antibiotic agents; Z88.6 Allergy status to analgesic agent; Z88.0 Allergy status to penicillin; Z91.048 Other nonmedicinal substance allergy status; Z88.5 Allergy status to narcotic agent
CPT/HCPCS: 85025; 86850; 86900; 86901

== ENCOUNTER → 2023-12-22 | Outpatient (CLI) | payer BC ==
[2023-12-22 13:25] LABS: T4, Free (Free Thyroxine) 1.02 ng/dL (0.80-1.80)
[2023-12-22 16:37] LABS: Follicle Stimulating Hormone 7.1 mIU/mL; Luteinizing Hormone 6.9 mIU/mL
== END | disposition home or self-care (01) ==
LOC: LABWHC1 09:20
PROVIDERS: ATTEND Obstetrics & Gynecology
DX: O92.6 Galactorrhea (principal)
CPT/HCPCS: 36415; 82670; 83001; 83002; 84146; 84439; 84443